=== PATIENT | female | born 1975 | race Caucasian/White ===

== ENCOUNTER 2017-11-19 12:10 | Emergency (ER) | END 2017-11-19 15:25 | disposition home or self-care (01) ==

== ENCOUNTER 2018-12-23 03:48 | Emergency (ER) | payer OTHER ==
[~2018-12-23] VITALS: Ht 157.5 cm; Wt 61.1 kg
[~2018-12-23 03:48] MED LIST: IBUP-1542 PO
[2018-12-23 03:55] VITALS: Ht 157.5 cm; Wt 61.1 kg
[2018-12-23] MEDS ORDERED: HYDROCODONE/APAP (5/325) TAB PO ONE (05:00)
[2018-12-23] MEDS ORDERED: BUTA1CAP38 PO (05:57)
[2018-12-23] MEDS ORDERED: IBUP-1542 PO (05:57)
--- NOTE | 2018-12-23 06:00 | ERD ---
ER Documentation Chief Complaint Chief Complaint HEADACHE X3DAYS, FEELING SOB TODAY; NO N/V HPI 43-year-old female with history of migraines present with headache for last 3 days. States that this headache is been worse than any of the headache she has had in the past. States that the headache is been constant for 3 days although it has fluctuated in intensity. At its height she states that the headache has been the worst headache of her life. Right now she says the headache is 5 out of 10 intensity. Denies any numbness or weakness. Denies any vision problems, fevers, nuchal rigidity, photophobia. ROS All systems reviewed and are negative except as per history of present illness. Medications Home Meds Active Scripts Hhxvzhxwjh-Qwcikbgzijpri-Tfrcsfbo* (Fioricet*) 50-300-40 Mg Capsule, 1 CAP PO Q4H PRN for HEADACHE, #20 CAP Prov:DEV METCALF 12/23/18 Ibuprofen* (Motrin*) 600 Mg Tab, 600 MG PO Q6, #30 TAB Prov:DEV METCALF 12/23/18 Ibuprofen* (Motrin*) 600 Mg Tab, 600 MG PO Q6H PRN for PAIN AND OR ELEVATED TEMP, #30 TAB Prov:NHI PEREZ MD 11/19/17 PMhx/Soc History of Surgery: Yes (C SECTION X 2 ) Hx Alcohol Use: No Hx Substance Use: No Hx Tobacco Use: No Smoking Status: Never smoker FmHx Family History: No diabetes, No coronary disease, No other Physical Exam Vitals Vital Signs Date Temp Pulse Resp B/P (MAP) Pulse Ox O2 O2 Flow FiO2 Time Delivery Rate 12/23/18 98.6 63 18 111/75 98 Room Air 07:32 (87) 12/23/18 97.8 80 22 121/80 100 03:55 (94) Physical Exam Const: No acute distress Head: Atraumatic Eyes: Normal Conjunctiva ENT: Normal External Ears, Nose and Mouth. Neck: Full range of motion. No meningismus. Resp: Clear to auscultation bilaterally Cardio: Regular rate and rhythm, no murmurs Abd: Soft, non tender, non distended. Normal bowel sounds Skin: No petechiae or rashes Back: No midline or flank tenderness Ext: No cyanosis, or edema Neur: Awake and alert. CN I through XII intact. Psych: Normal Mood and Affect Neuro: M/S: Alert and oriented Face: EOMI, face and pharynx with normal sensation and function Motor: Normal strength throughout Sensation: Normal sensation throughout Speech: Normal Cerebel: Normal coordination Normal gait Normal finger to nose DTR: 2+ and symmetric upper/lower extremities Results 24 hrs Laboratory Tests Test 12/23/18 05:18 POC Beta HCG, Qualitative NEGATIVE Current Medications Medications Dose Sig/Deysi Start Time Status Last (Trade) Ordered Route PRN Stop Time Admin Dose Reason Admin 1 tab ONCE ONCE 12/23/18 DC 12/23/18 Acetaminophen PO 05:00 05:13 / 12/23/18 05:02 Hydrocodone Bitart ([place] ()) Procedures/MDM MDM:DIAGNOSTIC IMAGING REPORT Patient: MARLENE CASTRO : 1975 Age: 43 Sex: F MR #: [id number] DOS: 12/23/18 0500 Ordering MD: DEV METCALF Location: [facility] Room/Bed: PROCEDURE: CT head without intravenous contrast CLINICAL INDICATION: Severe headache. COMPARISON: None. TECHNIQUE: Axial CT images from skull base to vertex with coronal and sagittal reformats. DOSE: The estimated administered radiation dose was CTDI vol = 39.64 mGy. DLP = 634.23 mGy-cm. One or more of the following dose reduction techniques were used: automated exposure control, adjustment of the mA and/or kV according to patient size, or use of iterative reconstruction. DICOM images are available. FINDINGS: Parenchyma: No acute hemorrhage, large territorial infarction, or mass. The meyer-white matter junctions are intact. No space occupying intra-axial masses or extra-axial fluid collections are present. 4 mm calcification is located in the posterior left putamen probably representing the sequela of remote infection (cysticercosis). Ventricles: No ventriculomegaly or ventricular effacement. Extra-axial spaces: No herniation or midline shift. Paranasal sinuses: There is moderate mucosal thickening of the left sphenoid sinus without air fluid level. Mastoids and middle ears: Clear. Visualized orbits: Normal. Vessels: [<There is no calcified atherosclerotic arterial plaque identified in the internal carotid arteries.>] Bones: Normal. Extracranial soft tissues: Normal. Additional comment: None. IMPRESSION: 1. No acute intracranial pathology. 2. Moderate opacification of the left sphenoid sinus. 3. 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 RPTAT: HRSR Physician Deepthi Date Time Electronically viewed and signed by Kaz Olivia Physician on 12/23/2018 07:20 RR/ CC: DEV METCALF [id number] MDM: Given patient's complaint of worse headache of life decision was made to order CT. Patient was signed out to KATIE Mendoza pending results of CT. Assuming CT results are negative, patient will be treated for migraine with ibuprofen at if that does not resolver her pain she can take Fioricet. Departure Diagnosis: Primary Impression: Headache Headache type: unspecified Headache chronicity pattern: acute headache Intractability: not intractable Qualified Codes: R51 - Headache Condition: Stable Patient Instructions: Self-Care for Headaches Additional Instructions: FOLLOW UP WITH YOUR PRIMARY CARE PHYSICIAN TOMORROW.Return to this facility if you are not improving as expected. DEV METCALF December 23, 2018 06:00
[2018-12-23 07:32] VITALS: BP 111/75; PULSE 63; RESP 18
== END 2018-12-23 07:33 | disposition home or self-care (01) ==
LOC: FTE 03:48
DX: R51 Headache (principal)
CPT/HCPCS: 70450; 81025; Z7502; Z7610